=== PATIENT | male | born 1985 | race Caucasian/White ===

== ENCOUNTER 2016-11-17 08:22 | Emergency (ER) | payer MEDICAID ==
[~2016-11-17 08:22] MED LIST: FLEXERIL10 MG PO; HYDROCODON-ACE1 EAC7 PO; MOTRIN600 M2 PO; NO MEDICATIONS; VOLTAREN75 MG PO
[2016-11-17 08:45] LABS: INFLUENZA A NEG (NEG); INFLUENZA B NEG (NEG)
== END 2016-11-17 09:33 | disposition home or self-care (01) ==
LOC: SED 08:22
PROVIDERS: Emergency Medicine
DX: J02.9 Acute pharyngitis, unspecified (principal); J06.9 Acute upper respiratory infection, unspecified; F43.10 Post-traumatic stress disorder, unspecified
CPT/HCPCS: 87651; 87804; 99282

== ENCOUNTER 2017-05-03 18:29 | Emergency (ER) | payer MEDICAID ==
[2017-05-03 19:20] LABS: URINE SOURCE CLEAN CATCH
[2017-05-03 19:22] LABS: URINE APPEARANCE SL CLOUDY; URINE BILIRUBIN NEG (NEG); URINE BLOOD 1+ (NEG); URINE COLOR YELLOW; URINE GLUCOSE NEG (NORM); URINE KETONE NEG (NEG); URINE LEUKOCYTE ESTERASE 2+ (NEG); URINE NITRATE NEG (NEG); URINE PROTEIN NEG (NEG); URINE SPECIFIC GRAVITY 1.025 (1.003-1.035); URINE UROBILINOGEN 0.2 MG/DL (NORM)
[2017-05-03 19:27] LABS: MICRO INDICATED? YES
[2017-05-03 19:31] LABS: URINE WBC 200-300 /[HPF] (0-5)
[2017-05-03 19:32] LABS: CULTURE INDICATED? YES; URINE BACTERIA 1+ (NEG); URINE MUCUS PRESENT; URINE SQUAMOUS EPITHELIAL CELL FEW /[HPF]
[2017-05-05 23:43] LABS: CHLAMYDIA TRACH Not Detected (Not Detected); N GONOR Detected (Not Detected)
== END 2017-05-03 20:10 | disposition home or self-care (01) ==
LOC: SED 18:29
PROVIDERS: Nurse Practitioner
DX: N30.90 Cystitis, unspecified without hematuria (principal); F43.10 Post-traumatic stress disorder, unspecified; Z20.2 Contact with and (suspected) exposure to infections with a predominantly sexual mode of transmission
CPT/HCPCS: 81003; 87086; 87491; 87591; 96372; 99283; J0696